=== PATIENT | male | born 1995 | race Caucasian/White ===

== ENCOUNTER 2018-04-19 02:53 | Emergency (ER) | payer MEDICAID ==
[~2018-04-19] VITALS: Ht 193 cm; Wt 78.5 kg
[2018-04-19 03:06] VITALS: Ht 193 cm; Wt 78.5 kg
[2018-04-19 06:43] VITALS: BP 109/59
== END 2018-04-19 06:43 | disposition home or self-care (01) ==
LOC: ED 02:53
DX: S46.912A Strain of unspecified muscle, fascia and tendon at shoulder and upper arm level, left arm, initial encounter (principal); S50.12XA Contusion of left forearm, initial encounter; Z90.89 Acquired absence of other organs; V49.88XA Car occupant (driver) (passenger) injured in other specified transport accidents, initial encounter; Y93.89 Activity, other specified; Y92.89 Other specified places as the place of occurrence of the external cause; Y99.8 Other external cause status
CPT/HCPCS: J1885; Q0092